=== PATIENT | female | born 1985 | race Asian ===

== ENCOUNTER 2021-05-29 16:32 | Inpatient (IN) | payer OTHER ==
[~2021-05-29] VITALS: Ht 157.5 cm; Wt 80.3 kg
[~2021-05-29 16:32] MED LIST: COLACE100 MG PO; IBU600 MG PO; NORCO 5-325 TA1 EACH PO; PRENATAL VITAM1 EAC8 PO
[2021-05-29 17:06] LABS: HEMOGLOBIN 10.7 gm/dl (12.3-15.3); RED BLOOD COUNT 3.99 M/UL (4.00-5.10); WHITE BLOOD COUNT 10.3 K/UL (4.5-11.0)
[2021-05-29] MEDS ORDERED: PRENATAL VITAM1 EAC5 PO (17:14)
[2021-05-31 07:41] LABS: HEMOGLOBIN 9.9 gm/dl (12.3-15.3)
[2021-05-31] MEDS ORDERED: HYDROCODON-ACE1 EAC4 PO (12:55)
[2021-05-31] MEDS ORDERED: FERROUS SULFAT325 M2 PO (12:55)
[2021-05-31] MEDS ORDERED: IBUPROFEN800 MG PO (12:55)
[2021-05-31] MEDS ORDERED: DOCUSATE SODIU100 MG PO (12:55)
== END 2021-06-01 13:31 | disposition home or self-care (01) | DRG 807 ==
LOC: GENOP 16:32 → OB 17:08
PROVIDERS: ADMIT Obstetrics & Gynecology
PROC: 4A1HXCZ Monitoring of Products of Conception, Cardiac Rate, External Approach (ICD-10-PCS; 2021-05-29)
PROC: 0U7C7ZZ Dilation of Cervix, Via Natural or Artificial Opening (ICD-10-PCS; 2021-05-29)
PROC: 10E0XZZ Delivery of Products of Conception, External Approach (ICD-10-PCS; principal; 2021-05-30)
PROC: 0KQM0ZZ Repair Perineum Muscle, Open Approach (ICD-10-PCS; 2021-05-30)
PROC: 10907ZC Drainage of Amniotic Fluid, Therapeutic from Products of Conception, Via Natural or Artificial Opening (ICD-10-PCS; 2021-05-30)
PROC: 3E033VJ Introduction of Other Hormone into Peripheral Vein, Percutaneous Approach (ICD-10-PCS; 2021-05-30)
DX: O66.0 Obstructed labor due to shoulder dystocia (principal); Z37.0 Single live birth; Z3A.40 40 weeks gestation of pregnancy; Z20.822 Contact with and (suspected) exposure to COVID-19; O70.1 Second degree perineal laceration during delivery
CPT/HCPCS: 51702; 81001; 82800; 85014; 85018; 85025; 90471; 90715; J2590; J7120

== ENCOUNTER 2021-07-23 18:51 | Emergency (ER) | payer OTHER ==
[~2021-07-23 18:51] MED LIST changes: +DOCUSATE SODIU100 MG PO; +FERROUS SULFAT325 M2 PO; +HYDROCODON-ACE1 EAC4 PO; +IBUPROFEN800 MG PO; +PRENATAL VITAM1 EAC5 PO
== END 2021-07-23 20:18 | disposition home or self-care (01) ==
LOC: ER1 18:51
DX: S90.851A Superficial foreign body, right foot, initial encounter (principal); Z23 Encounter for immunization; W45.8XXA Other foreign body or object entering through skin, initial encounter
CPT/HCPCS: 10120; 90715; 99283